=== PATIENT | male | born 1985 | race Caucasian/White ===

== ENCOUNTER 2017-09-22 12:36 | Inpatient (IN) | payer OTHER ==
[~2017-09-22] VITALS: Ht 180.3 cm; Wt 81.6 kg
[2017-09-22] MEDS: MORPHINE SULFATE 4 MG/ML DISP.SYRIN. IV/SQ PRN ×2 (12:58→13:32)
--- NOTE | 2017-09-22 13:08 | RAD ---
FOOT RIGHT 3V Clinical Indication: crush injury Comparison: None. Findings: There is acute traumatic fracture that is nondisplaced at the head of the first metatarsal. There are acute fractures of the necks of the second, third, and fourth metatarsals. The second metatarsal fracture fragment is slightly medially displaced and laterally angulated. The third metatarsal fracture fragment is slightly laterally displaced. There is additional transverse fracture line that is nondisplaced of the head of the third metatarsal. There is acute traumatic chip fracture at the lateral base of the fourth proximal phalanx. There is acute traumatic chip fracture at the medial head of the first proximal phalanx. There is acute traumatic chip fracture at the lateral base of the great toe distal phalanx. Moderate dorsal soft tissue swelling overlying the heads of the metatarsals. IMPRESSION: Multiple acute traumatic fractures of the first through fourth metatarsals and the first and fourth toes.
[2017-09-22] MEDS ORDERED: ONDANSETRON PF 4 MG/2 ML VIAL. IV ONE (13:15)
[2017-09-22] MEDS ORDERED: IV NORMAL SALINE 1000ML BAG 1,000 ML IV ONE (13:15)
[2017-09-22 13:22] LABS: BASO # 0.1 x10^3/uL (0.0-0.2); BASO % 1 % (0-3); EOS % 3 % (0-3); HEMATOCRIT 42.6 % (39.0-53.0); HEMOGLOBIN 14.8 g/dL (13.0-17.5); LYMPH # 2.3 x10^3/uL (1.0-4.8); LYMPH % 30 % (24-48); MEAN CORPUSCULAR HEMOGLOBIN 32 pg (25-35); MEAN CORPUSCULAR HGB CONC 35 g/dL (31-37); MEAN CORPUSCULAR VOLUME 93 fL (79-100); MONO % 9 % (0-9); NEUT % 58 % (31-73); PLATELET COUNT 158 x10^3/uL (140-400); RED BLOOD COUNT 4.61 x10^6/uL (4.30-5.70); RED CELL DISTRIBUTION WIDTH 12.8 % (11.5-14.5); WHITE BLOOD COUNT 7.7 x10^3/uL (4.0-11.0)
[2017-09-22 13:32] LABS: CALCIUM 8.5 mg/dL (8.5-10.1); CREATININE 0.9 mg/dL (0.7-1.3); GFR 98.4; POTASSIUM 3.1 mmol/L (3.5-5.1)
[2017-09-22 13:40] LABS: ALBUMIN 4.1 g/dL (3.4-5.0); ALBUMIN/GLOBULIN RATIO 1.4 (1.0-1.7); TOTAL BILIRUBIN 0.5 mg/dL (0.2-1.0); TOTAL PROTEIN 7.1 g/dL (6.4-8.2)
[2017-09-22] MEDS: fentaNYL PF VIAL 100 MCG/2 ML VIAL IV PRN (13:49)
[2017-09-22] MEDS ORDERED: MORPHINE SULFATE 4 MG/ML DISP.SYRIN. IV PRN (14:00)
--- NOTE | 2017-09-22 15:56 | PDOC2 ---
CONSULT Date of Consult Date of Consult DATE: 09/22/17 TIME: 15:51 Reason for Consult Reason for Consult: Right foot crush injury Referring Physician Referring Physician: Tammy Guerra Identification/Chief Complaint Chief Complaint Right foot pain Problems: Source Source: Patient History of Present Illness Reason for Visit: Patient is a 32-year-old inmate who had a crush injury to his right foot. He tells me his right foot was crushed by a large steel to that struck his foot and bounced off. He was wearing steel toed boots with a metatarsal protector as well. He is complaining of right foot pain that radiates up is inner leg. It is worse with any movement of his foot or leg. He was unable to bear weight. He has difficulty wiggling his toes Secondary to pain. He denies pain anywhere else. Current Medications Current Medications Current Medications Morphine Sulfate 4 mg PRN Q15MIN PRN IV/SQ PAIN GREATER THAN 3/10 Last administered on 09/22/17 13:32; Start 09/22/17 at 12:45; Stop 09/23/17 at 12 :44 Fentanyl Citrate (Fentanyl 2ml Vial) 50 mcg PRN Q15MIN PRN IV PAIN GREATER THAN 3/10 Last administered on 09/22/17 13:49; Start 09/22/17 at 12:45; Stop 09/23/17 at 12:44 Ondansetron HCl (Zofran) 4 mg 1X ONCE IV Last administered on 09/22/17 12:57 ; Start 09/22/17 at 13:15; Stop 09/22/17 at 13:16; Status DC Sodium Chloride 1,000 ml @ 1,000 mls/hr 1X ONCE IV Last administered on 09/22 13:32; Start 09/22/17 at 13:15; Stop 09/22/17 at 14:14; Status DC Ondansetron HCl (Zofran) 4 mg PRN Q8HRS PRN IV NAUSEA/VOMITING; Start at 14:00; Stop 09/23/17 at 13:59 Morphine Sulfate 4 mg PRN Q2HR PRN IV PAIN; Start 09/22/17 at 14:00; Stop at 13:59 Sodium Chloride 1,000 ml @ 125 mls/hr Q8H IV ; Start 09/22/17 at 13:58; Stop 09/23/17 at 13:57 Allergies Allergies: Coded Allergies: No Known Drug Allergies (Unverified , 09/22/17) ROS General: No: Chills, Night Sweats, Fatigue, Malaise, Appetite, Other Eyes: No Blurry vision, No Decreased vision, No Double vision, No Dry eyes, No Excessive tearing, No Eye Pain, No Itchy Eyes, No Loss of vision, No Photophobia , No Scotomata, No Uses contacts, No Uses glasses, No Other HEENT: No: Heacaches, Visual Changes, Hearing change, Nasal congestion, Nasal discharge, Oral lesions, Sinus pain, Sore Throat, Epistaxis, Sneezing, Snoring, Tinnitus, Vertigo, Vocal changes, Other Hematological and Lymphatic: No: Bleeding Problems, Blood Clots, Blood Transfusions, Brusing, Night Sweats, Pallor, Swollen Lymph Nodes, Other ENDOCRINE: No: Breast Changes, Galactorrhea, Hair Pattern Changes, Hot Flashes , Malaise/lethargy, Mood Swings, Palpitations, Polydipsia/polyuria, Skin Changes , Temperature Intolerance, Unexpected Weight Changes, Other Respiratory: No: Cough, Hemoptysis, Orthopnea, Pleuritic Pain, Shortness of breath, SOB with excertion, Sputum Changes, Stridor, Tachypnea, Wheezing, Other Cardiovascular: No Chest Pain, No Palpitations, No Orthopnea, No Paroxysmal Noc. Dyspnea, No Edema, No Lt Headedness, No Other Gastrointestinal: No Nausea, No Vomiting, No Abdominal Pain, No Diarrhea, No Constipation, No Melena, No Hematochezia, No Other Genitourinary: No Dysuria, No Frequency, No Incontinence, No Hematuria, No Retention, No Discharge, No Urgency, No Pain, No Flank Pain, No Other, No , No , No , No , No , No , No Musculoskeletal: Yes Joint Pain, Yes Joint Stiffness Physical Exam General: Alert, Oriented X3, mild distress HEENT: Atraumatic, PERRLA Lungs: Other (respirations are unlabored with symmetric chest rise) Heart: Regular rate, Other (unable to palpate dorsalis pedis through edema over the dorsum of right foot, 2+ left foot) Extremities: Other (he has a large amount of edema at his right foot) Skin: Other (skin is intact around the injured right foot) Neuro: Normal speech, Sensation intact Psych/Mental Status: Mental status NL, Mood NL MUSCULOSKELETAL: Other (examination of his bilateral lower extremity reveals a large amount of edema and some early ecchymosis around his right foot. No plantar ecchymosis at his midfoot. He has a gross deformity at his right great toe IP joint. He is tender throughout his right foot. No tenderness in his hindfoot leg knee or hips. No tenderness with simulated lateral compression at his hips. No pain with logrolling of either leg his hip's.) Vitals VITALS Vital Signs Date Time Temp Pulse Resp B/P (MAP) Pulse Ox O2 Delivery O2 Flow Rate FiO2 09/22/17 14:39 80 17 132/70 (90) 95 Room Air 09/22/17 12:36 98.6 98.6 Labs Labs Laboratory Tests Test 09/22/17 12:45 White Blood Count 7.7 x10^3/uL (4.0-11.0) Red Blood Count 4.61 x10^6/uL (4.30-5.70) Hemoglobin 14.8 g/dL (13.0-17.5) Hematocrit 42.6 % (39.0-53.0) Mean Corpuscular Volume 93 fL (79-100) Mean Corpuscular Hemoglobin 32 pg (25-35) Mean Corpuscular Hemoglobin Concent 35 g/dL (31-37) Red Cell Distribution Width 12.8 % (11.5-14.5) Platelet Count 158 x10^3/uL (140-400) Neutrophils (%) (Auto) 58 % (31-73) Lymphocytes (%) (Auto) 30 % (24-48) Monocytes (%) (Auto) 9 % (0-9) Eosinophils (%) (Auto) 3 % (0-3) Basophils (%) (Auto) 1 % (0-3) Neutrophils # (Auto) 4.4 x10^3uL (1.8-7.7) Lymphocytes # (Auto) 2.3 x10^3/uL (1.0-4.8) Monocytes # (Auto) 0.7 x10^3/uL (0.0-1.1) Eosinophils # (Auto) 0.2 x10^3/uL (0.0-0.7) Basophils # (Auto) 0.1 x10^3/uL (0.0-0.2) Sodium Level 144 mmol/L (136-145) Potassium Level 3.1 mmol/L (3.5-5.1) Chloride Level 105 mmol/L (98-107) Carbon Dioxide Level 29 mmol/L (21-32) Anion Gap 10 (6-14) Blood Urea Nitrogen 9 mg/dL (8-26) Creatinine 0.9 mg/dL (0.7-1.3) Estimated GFR (Cockcroft-Gault) 98.4 BUN/Creatinine Ratio 10 (6-20) Glucose Level 106 mg/dL (70-99) Calcium Level 8.5 mg/dL (8.5-10.1) Total Bilirubin 0.5 mg/dL (0.2-1.0) Aspartate Amino Transf (AST/SGOT) 20 U/L (15-37) Alanine Aminotransferase (ALT/SGPT) 24 U/L (16-63) Alkaline Phosphatase 67 U/L (46-116) Creatine Kinase 220 U/L (39-308) Total Protein 7.1 g/dL (6.4-8.2) Albumin 4.1 g/dL (3.4-5.0) Albumin/Globulin Ratio 1.4 (1.0-1.7) Laboratory Tests Test 09/22/17 12:45 White Blood Count 7.7 x10^3/uL (4.0-11.0) Red Blood Count 4.61 x10^6/uL (4.30-5.70) Hemoglobin 14.8 g/dL (13.0-17.5) Hematocrit 42.6 % (39.0-53.0) Mean Corpuscular Volume 93 fL (79-100) Mean Corpuscular Hemoglobin 32 pg (25-35) Mean Corpuscular Hemoglobin Concent 35 g/dL (31-37) Red Cell Distribution Width 12.8 % (11.5-14.5) Platelet Count 158 x10^3/uL (140-400) Neutrophils (%) (Auto) 58 % (31-73) Lymphocytes (%) (Auto) 30 % (24-48) Monocytes (%) (Auto) 9 % (0-9) Eosinophils (%) (Auto) 3 % (0-3) Basophils (%) (Auto) 1 % (0-3) Neutrophils # (Auto) 4.4 x10^3uL (1.8-7.7) Lymphocytes # (Auto) 2.3 x10^3/uL (1.0-4.8) Monocytes # (Auto) 0.7 x10^3/uL (0.0-1.1) Eosinophils # (Auto) 0.2 x10^3/uL (0.0-0.7) Basophils # (Auto) 0.1 x10^3/uL (0.0-0.2) Sodium Level 144 mmol/L (136-145) Potassium Level 3.1 mmol/L (3.5-5.1) Chloride Level 105 mmol/L (98-107) Carbon Dioxide Level 29 mmol/L (21-32) Anion Gap 10 (6-14) Blood Urea Nitrogen 9 mg/dL (8-26) Creatinine 0.9 mg/dL (0.7-1.3) Estimated GFR (Cockcroft-Gault) 98.4 BUN/Creatinine Ratio 10 (6-20) Glucose Level 106 mg/dL (70-99) Calcium Level 8.5 mg/dL (8.5-10.1) Total Bilirubin 0.5 mg/dL (0.2-1.0) Aspartate Amino Transf (AST/SGOT) 20 U/L (15-37) Alanine Aminotransferase (ALT/SGPT) 24 U/L (16-63) Alkaline Phosphatase 67 U/L (46-116) Creatine Kinase 220 U/L (39-308) Total Protein 7.1 g/dL (6.4-8.2) Albumin 4.1 g/dL (3.4-5.0) Albumin/Globulin Ratio 1.4 (1.0-1.7) Images Images X-rays were interpreted by myself. He has multiple metatarsal fractures with an IP joint dislocation at his right great toe. He has a first through fourth metatarsal shaft fractures as well as a P1 fracture of his right fourth toe Assessment/Plan Assessment/Plan Multiple closed right foot distal metatarsal fractures in acceptable overall alignment, right fourth toe proximal phalanx fracture Right great toe IP joint dislocation I did discuss risks, benefits, alternatives to closed versus open reduction and pinning of his right great toe. I did discuss with him that his metatarsals do not necessarily necessitate any treatment. We will get a CAT scan postoperatively to further evaluate his foot. He is to be admitted to the hospitalist. From my standpoint he does not need anticoagulation. He will need IV pain medicine, we will work with his pain control. He'll be nonweightbearing at his right lower extremity. LOPEZ KNAPP II, MD Sep 22, 2017 15:56
--- NOTE | 2017-09-22 16:48 | PDOC4 ---
Operative Note Operative Note Date of surgery: 09/22/2017 Surgeon: Mark Knapp Preoperative diagnosis: #1 right great toe interphalangeal joint dislocation #2 closed right first metatarsal fracture #3 closed right second metatarsal fracture #4 close right third metatarsal fracture #5 closed right fourth metatarsal fracture #6 closed right fourth toe proximal phalanx fracture Postoperative diagnoses same Procedure performed: #1 closed reduction and pinning right great toe dislocation #2 closed treatment right first metatarsal fracture #3 closed treatment right second metatarsal fracture #4 close treatment right third metatarsal fracture #5 closed treatment right fourth metatarsal fracture #6 closed treatment right fourth toe proximal phalanx fracture Complications: None Anesthesia: Gen. Components inserted: 0.62 K wire Blood loss: 2 mL Findings: Acute IP joint dislocation of right great toe Reason for procedure: Kolby is a 32-year-old inmate who had his right foot crushed by a large deal tube. He was wearing protective boots. Please see my consult note for full details. We had a discussion of the risks, benefits, and alternatives to above procedure and he elected to proceed. Description of procedure: Patient was greeted in the preoperative holding area where the correct extremity was marked and verified. He was taken back to the operative suite and his antibiotics were started as he was brought back. Once in the operating room, he was transferred gently supine to the OR table and secured to the bed with all pressure points padded. He underwent successful induction of a general anesthetic. We applied a nonsterile tourniquet to his right thigh. We proceeded prep and drape right lower extremity are usual sterile fashion and conducted our standard preoperative timeout. I then perform a reduction maneuver consisting of longitudinal traction to realign the phalanges. I brought in C-arm to confirm appropriate reduction and help guide my K wire placement. I advanced a K wire down through both phalanges confirming reduction and K wire position under triplanar fluoroscopy. I then cut the K wire and secured a plastic ball at the end. We then placed a gauze wrap around the K wire. I then placed him into an AO splint with a footplate. It was very well padded. Surgery was well tolerated. He was awakened from anesthesia and transferred gently supine to the hospital bed after the plaster had hardened. Postoperative plan is to admit him to the care of the hospital was. We will follow along. Nonweightbearing right lower extremity. We'll maintain him on antibiotic prophylaxis postoperatively as well. MARK KNAPP II, MD Sep 22, 2017 16:48
--- NOTE | 2017-09-22 17:15 | PDOC1 ---
History and Physical Date of Admission Date of Admission DATE: 09/22/17 TIME: 17:11 Identification/Chief Complaint Chief Complaint foot pain Problems: Source Source: Chart review, Patient History of Present Illness History of Present Illness Mr. Da Silva, is a 32-year-old male, currently low-security inmate, [place]. who had a crush injury to his right foot. He can move 500 lbs bundles of metal , it was unstable,and he dropped on right foot. Acute severe pain, pain 10/10, better with Fentanyl He was wearing steel toed boots with a metatarsal protector as well. pain to inner thigh, severe Past Medical History Cardiovascular: No pertinent hx Pulmonary: No pertinent hx GI: No pertinent hx Heme/Onc: No pertinent hx Hepatobiliary: No pertinent hx Psych: No pertinent hx Rheumatologic: No pertinent hx Infectious disease: No pertinent hx Past Surgical History Past Surgical History: No pertinent history Family History Family History: Family History Unknown Social History Smoke: No ALCOHOL: none Drugs: None Current Medications Current Medications Current Medications Morphine Sulfate 4 mg PRN Q15MIN PRN IV/SQ PAIN GREATER THAN 3/10 Last administered on 09/22/17 13:32; Start 09/22/17 at 12:45; Stop 09/23/17 at 12 :44 Fentanyl Citrate (Fentanyl 2ml Vial) 50 mcg PRN Q15MIN PRN IV PAIN GREATER THAN 3/10 Last administered on 09/22/17 13:49; Start 09/22/17 at 12:45; Stop 09/23/17 at 12:44 Ondansetron HCl (Zofran) 4 mg 1X ONCE IV Last administered on 09/22/17 12:57 ; Start 09/22/17 at 13:15; Stop 09/22/17 at 13:16; Status DC Sodium Chloride 1,000 ml @ 1,000 mls/hr 1X ONCE IV Last administered on 09/22 13:32; Start 09/22/17 at 13:15; Stop 09/22/17 at 14:14; Status DC Ondansetron HCl (Zofran) 4 mg PRN Q8HRS PRN IV NAUSEA/VOMITING; Start at 14:00; Stop 09/23/17 at 13:59 Morphine Sulfate 4 mg PRN Q2HR PRN IV PAIN; Start 09/22/17 at 14:00; Stop at 13:59 Sodium Chloride 1,000 ml @ 125 mls/hr Q8H IV ; Start 09/22/17 at 13:58; Stop 09/23/17 at 13:57 Cefazolin Sodium/ Dextrose 50 ml @ 100 mls/hr 1X ONCE IV ; Start 09/22/17 at 16:00; Stop 09/22/17 at 16:29; Status DC Cefazolin Sodium/ Dextrose 50 ml @ 100 mls/hr Q6H IV ; Start 09/22/17 at 16:00 ; Stop 09/23/17 at 04:29; Status UNV Allergies Allergies: Coded Allergies: No Known Drug Allergies (Unverified , 09/22/17) ROS General: No: Chills, Night Sweats, Fatigue, Malaise, Appetite, Other PSYCHOLOGICAL ROS: No: Anxiety, Behavioral Disorder, Concentration difficultie , Decreased libido, Depression, Disorientation, Hallucinations, Hostility, Irritablity, Memory difficulties, Mood Swings, Obsessive thoughts, Physical abuse, Sexual abuse, Sleep disturbances, Suicidal ideation, Other Eyes: Yes Other (dry mouth), No Blurry vision, No Decreased vision, No Double vision, No Dry eyes, No Excessive tearing, No Eye Pain, No Itchy Eyes, No Loss of vision, No Photophobia , No Scotomata, No Uses contacts, No Uses glasses HEENT: No: Heacaches, Visual Changes, Hearing change, Nasal congestion, Nasal discharge, Oral lesions, Sinus pain, Sore Throat, Epistaxis, Sneezing, Snoring, Tinnitus, Vertigo, Vocal changes, Other Hematological and Lymphatic: YES: Pallor Respiratory: No: Cough, Hemoptysis, Orthopnea, Pleuritic Pain, Shortness of breath, SOB with excertion, Sputum Changes, Stridor, Tachypnea, Wheezing, Other Cardiovascular: No Chest Pain, No Palpitations, No Orthopnea, No Paroxysmal Noc. Dyspnea, No Edema, No Lt Headedness, No Other Gastrointestinal: No Nausea, No Vomiting, No Abdominal Pain, No Diarrhea, No Constipation, No Melena, No Hematochezia, No Other Genitourinary: No Dysuria, No Frequency, No Incontinence, No Hematuria, No Retention, No Discharge, No Urgency, No Pain, No Flank Pain, No Other, No , No , No , No , No , No , No Musculoskeletal: Yes Joint Pain, Yes Joint Stiffness, Yes Pain In:, No Gait Disturbance, No Joint Swelling, No Muscle Pain, No Muscular Weakness , No Swelling In:, No Other Neurological: No Behavorial Changes, No Bowel/Bladder ControlChng, No Confusion , No Dizziness, No Gait Disturbance, No Headaches, No Impaired Coord/balance, No Memory Loss, No Numbness/Tingling, No Seizures, No Speech Problems, No Tremors, No Visual Changes, No Weakness, No Other Skin: No Dry Skin, No Eczema, No Hair Changes, No Lumps, No Mole Changes, No Mottling, No Nail Changes, No Pruritus, No Rash, No Skin Lesion Changes, No Other, No Acne Physical Exam General: Alert, Oriented X3, Cooperative, moderate distress HEENT: Mucous membr. moist/pink Lungs: Clear to auscultation, Normal air movement Heart: S1S2, no gallops, no murmurs Abdomen: Normal bowel sounds, Soft Rectal Exam: not examined Extremities: No clubbing, No cyanosis, No edema Skin: No significant lesion Neuro: Normal speech, Sensation intact, Cranial nerves 3-12 NL Psych/Mental Status: Mental status NL Vitals Vitals Vital Signs Date Time Temp Pulse Resp B/P (MAP) Pulse Ox O2 Delivery O2 Flow Rate FiO2 09/22/17 15:54 91 14 113/59 (77) 97 Room Air 09/22/17 12:36 98.6 98.6 Labs Labs Laboratory Tests Test 09/22/17 12:45 White Blood Count 7.7 x10^3/uL (4.0-11.0) Red Blood Count 4.61 x10^6/uL (4.30-5.70) Hemoglobin 14.8 g/dL (13.0-17.5) Hematocrit 42.6 % (39.0-53.0) Mean Corpuscular Volume 93 fL (79-100) Mean Corpuscular Hemoglobin 32 pg (25-35) Mean Corpuscular Hemoglobin Concent 35 g/dL (31-37) Red Cell Distribution Width 12.8 % (11.5-14.5) Platelet Count 158 x10^3/uL (140-400) Neutrophils (%) (Auto) 58 % (31-73) Lymphocytes (%) (Auto) 30 % (24-48) Monocytes (%) (Auto) 9 % (0-9) Eosinophils (%) (Auto) 3 % (0-3) Basophils (%) (Auto) 1 % (0-3) Neutrophils # (Auto) 4.4 x10^3uL (1.8-7.7) Lymphocytes # (Auto) 2.3 x10^3/uL (1.0-4.8) Monocytes # (Auto) 0.7 x10^3/uL (0.0-1.1) Eosinophils # (Auto) 0.2 x10^3/uL (0.0-0.7) Basophils # (Auto) 0.1 x10^3/uL (0.0-0.2) Sodium Level 144 mmol/L (136-145) Potassium Level 3.1 mmol/L (3.5-5.1) Chloride Level 105 mmol/L (98-107) Carbon Dioxide Level 29 mmol/L (21-32) Anion Gap 10 (6-14) Blood Urea Nitrogen 9 mg/dL (8-26) Creatinine 0.9 mg/dL (0.7-1.3) Estimated GFR (Cockcroft-Gault) 98.4 BUN/Creatinine Ratio 10 (6-20) Glucose Level 106 mg/dL (70-99) Calcium Level 8.5 mg/dL (8.5-10.1) Total Bilirubin 0.5 mg/dL (0.2-1.0) Aspartate Amino Transf (AST/SGOT) 20 U/L (15-37) Alanine Aminotransferase (ALT/SGPT) 24 U/L (16-63) Alkaline Phosphatase 67 U/L (46-116) Creatine Kinase 220 U/L (39-308) Total Protein 7.1 g/dL (6.4-8.2) Albumin 4.1 g/dL (3.4-5.0) Albumin/Globulin Ratio 1.4 (1.0-1.7) Laboratory Tests Test 09/22/17 12:45 White Blood Count 7.7 x10^3/uL (4.0-11.0) Red Blood Count 4.61 x10^6/uL (4.30-5.70) Hemoglobin 14.8 g/dL (13.0-17.5) Hematocrit 42.6 % (39.0-53.0) Mean Corpuscular Volume 93 fL (79-100) Mean Corpuscular Hemoglobin 32 pg (25-35) Mean Corpuscular Hemoglobin Concent 35 g/dL (31-37) Red Cell Distribution Width 12.8 % (11.5-14.5) Platelet Count 158 x10^3/uL (140-400) Neutrophils (%) (Auto) 58 % (31-73) Lymphocytes (%) (Auto) 30 % (24-48) Monocytes (%) (Auto) 9 % (0-9) Eosinophils (%) (Auto) 3 % (0-3) Basophils (%) (Auto) 1 % (0-3) Neutrophils # (Auto) 4.4 x10^3uL (1.8-7.7) Lymphocytes # (Auto) 2.3 x10^3/uL (1.0-4.8) Monocytes # (Auto) 0.7 x10^3/uL (0.0-1.1) Eosinophils # (Auto) 0.2 x10^3/uL (0.0-0.7) Basophils # (Auto) 0.1 x10^3/uL (0.0-0.2) Sodium Level 144 mmol/L (136-145) Potassium Level 3.1 mmol/L (3.5-5.1) Chloride Level 105 mmol/L (98-107) Carbon Dioxide Level 29 mmol/L (21-32) Anion Gap 10 (6-14) Blood Urea Nitrogen 9 mg/dL (8-26) Creatinine 0.9 mg/dL (0.7-1.3) Estimated GFR (Cockcroft-Gault) 98.4 BUN/Creatinine Ratio 10 (6-20) Glucose Level 106 mg/dL (70-99) Calcium Level 8.5 mg/dL (8.5-10.1) Total Bilirubin 0.5 mg/dL (0.2-1.0) Aspartate Amino Transf (AST/SGOT) 20 U/L (15-37) Alanine Aminotransferase (ALT/SGPT) 24 U/L (16-63) Alkaline Phosphatase 67 U/L (46-116) Creatine Kinase 220 U/L (39-308) Total Protein 7.1 g/dL (6.4-8.2) Albumin 4.1 g/dL (3.4-5.0) Albumin/Globulin Ratio 1.4 (1.0-1.7) VTE Prophylaxis Ordered VTE Prophylaxis Devices: Yes VTE Pharmacological Prophylaxi: No Assessment/Plan Assessment/Plan trauma activation right foot crush injury hypokalemia incarcerated pain control, constipation meds IV fluid, PT and OT HUNG GREWAL MD Sep 22, 2017 17:15
[2017-09-22] MEDS ORDERED: MAGNESIUM HYDROXIDE 2,400 MG/30 ML ORAL.SUSP. PO PRN (17:30)
[2017-09-22] MEDS: IV RINGERS,LACTATED 1000ML 1,000 ML IV SCH ×2 (17:47→19:40)
--- NOTE | 2017-09-22 17:56 | PHYS DOC ---
Past Medical History Past Medical History: No Pertinent History Past Surgical History: No Surgical History Alcohol Use: None Drug Use: None Adult General Chief Complaint Chief Complaint: TRAUMA ALERT HPI HPI Patient is a 32 year old male who presents with crush injury to right foot. The patient states just prior to arrival a 480 lb metal pipe fell onto his foot. He was wearing work boots at the time. Denies other injuries. He complains of severe foot pain. Previously healthy. He is incarcerated & accompanied by guards. Review of Systems Review of Systems Constitutional: Denies fever or chills Eyes: Denies change in visual acuity HENT: Denies nasal congestion or sore throat Respiratory: Denies cough or shortness of breath Cardiovascular: Denies chest pain or edema GI: Denies abdominal pain, nausea, vomiting Musculoskeletal: Denies back pain, reports foot pain Integument: Denies rash or skin lesions Neurologic: Denies headache, focal weakness or sensory changes All other systems were reviewed and found to be within normal limits, except as documented in this note. Current Medications Current Medications Current Medications Medications (Trade) Dose Ordered Sig/Camelia Start Time Stop Time Status Last Admin Dose Admin Fentanyl Citrate (Fentanyl 2ml Vial) 50 mcg PRN Q15MIN PRN 09/22/17 12:45 09/23/17 12:44 09/22/17 13:49 50 MCG Morphine Sulfate 4 mg PRN Q15MIN PRN 09/22/17 12:45 09/23/17 12:44 09/22/17 13:32 4 MG Ondansetron HCl (Zofran) 4 mg 1X ONCE 09/22/17 13:15 09/22/17 13:16 DC 09/22/17 12:57 4 MG Sodium Chloride 1,000 ml @ 1,000 mls/hr 1X ONCE 09/22/17 13:15 09/22/17 14:14 DC 09/22/17 13:32 1,000 MLS/HR Allergies Allergies Allergies Coded Allergies Type Severity Reaction Last Updated Verified No Known Drug Allergies 09/22/17 No Physical Exam Physical Exam Constitutional: Well developed, well nourished, acute distress is present, appears to be in pain, non-toxic appearance. HENT: Normocephalic, atraumatic, bilateral external ears normal, oropharynx moist, nose normal. Eyes:conjunctiva normal, no discharge. Neck: supple, no stridor. Cardiovascular: RRR, no murmurs, no edema. Lungs & Thorax: LCTAB, no wheezing, no respiratory distress. Abdomen: soft, nontender, nondistended. Skin: Warm, dry, no erythema, no rash. Back: No tenderness. Extremities: right foot diffuse swelling over the dorsum, tenderness over essentially the entire dorsum of the foot, no laceration or open fracture, great toe appears to be deviated laterally, no ankle tenderness or deformity, dp /pt 2+, sensation intact to toes, cap refill < 2 sec. difficult to assess ankle ROM or ability to move toes due to severe pain. Neurologic: Alert and oriented X 3, no focal deficits noted. Psychologic: Affect normal, judgement normal, mood normal. Current Patient Data Vital Signs Vital Signs Date Time Temp Pulse Resp B/P (MAP) Pulse Ox O2 Delivery O2 Flow Rate FiO2 09/22/17 13:32 100 Room Air 09/22/17 13:24 73 16 127/69 (88) 09/22/17 12:36 98.6 98.6 Lab Values Laboratory Tests Test 09/22/17 12:45 White Blood Count 7.7 x10^3/uL (4.0-11.0) Red Blood Count 4.61 x10^6/uL (4.30-5.70) Hemoglobin 14.8 g/dL (13.0-17.5) Hematocrit 42.6 % (39.0-53.0) Mean Corpuscular Volume 93 fL (79-100) Mean Corpuscular Hemoglobin 32 pg (25-35) Mean Corpuscular Hemoglobin Concent 35 g/dL (31-37) Red Cell Distribution Width 12.8 % (11.5-14.5) Platelet Count 158 x10^3/uL (140-400) Neutrophils (%) (Auto) 58 % (31-73) Lymphocytes (%) (Auto) 30 % (24-48) Monocytes (%) (Auto) 9 % (0-9) Eosinophils (%) (Auto) 3 % (0-3) Basophils (%) (Auto) 1 % (0-3) Neutrophils # (Auto) 4.4 x10^3uL (1.8-7.7) Lymphocytes # (Auto) 2.3 x10^3/uL (1.0-4.8) Monocytes # (Auto) 0.7 x10^3/uL (0.0-1.1) Eosinophils # (Auto) 0.2 x10^3/uL (0.0-0.7) Basophils # (Auto) 0.1 x10^3/uL (0.0-0.2) Sodium Level 144 mmol/L (136-145) Potassium Level 3.1 mmol/L (3.5-5.1) L Chloride Level 105 mmol/L (98-107) Carbon Dioxide Level 29 mmol/L (21-32) Anion Gap 10 (6-14) Blood Urea Nitrogen 9 mg/dL (8-26) Creatinine 0.9 mg/dL (0.7-1.3) Estimated GFR (Cockcroft-Gault) 98.4 BUN/Creatinine Ratio 10 (6-20) Glucose Level 106 mg/dL (70-99) H Calcium Level 8.5 mg/dL (8.5-10.1) Total Bilirubin 0.5 mg/dL (0.2-1.0) Aspartate Amino Transferase (AST) 20 U/L (15-37) Alanine Aminotransferase (ALT) 24 U/L (16-63) Alkaline Phosphatase 67 U/L (46-116) Creatine Kinase 220 U/L (39-308) Total Protein 7.1 g/dL (6.4-8.2) Albumin 4.1 g/dL (3.4-5.0) Albumin/Globulin Ratio 1.4 (1.0-1.7) Laboratory Tests 09/22/17 12:45 Laboratory Tests 09/22/17 12:45 EKG EKG [] Radiology/Procedures Radiology/Procedures PROCEDURE: FOOT RIGHT 3V FOOT RIGHT 3V Clinical Indication: crush injury Comparison: None. Findings: There is acute traumatic fracture that is nondisplaced at the head of the first metatarsal. There are acute fractures of the necks of the second, third, and fourth metatarsals. The second metatarsal fracture fragment is slightly medially displaced and laterally angulated. The third metatarsal fracture fragment is slightly laterally displaced. There is additional transverse fracture line that is nondisplaced of the head of the third metatarsal. There is acute traumatic chip fracture at the lateral base of the fourth proximal phalanx. There is acute traumatic chip fracture at the medial head of the first proximal phalanx. There is acute traumatic chip fracture at the lateral base of the great toe distal phalanx. Moderate dorsal soft tissue swelling overlying the heads of the metatarsals. IMPRESSION: Multiple acute traumatic fractures of the first through fourth metatarsals and the first and fourth toes. DICTATED and SIGNED BY: CHRIS GARAY MD DATE: 09/22/17 1259 [] Course & Med Decision Making Course & Med Decision Making Pertinent Labs and Imaging studies reviewed. (See chart for details) The patient presents with crush injury to the foot. This was a trauma alert. Pain medication & IV fluids were administered. Obtained XR which shows metatarsal fractures as well as dislocation of the great toe at the IP joint. Discussed with Dr. Jain commercial lending relationship manager for orthopedics, recommends splinting & will take to OR for pinning. psychiatric technician applied well padded short leg splint, placement confirmed by me, neurovascular status intact after splint placement. Discussed with Dr. Morris who agrees to admit to inpatient status. Trauma consult to Dr. Ramirez. The patient is admitted in stable condition. [] Dragon Disclaimer Dragon Disclaimer This electronic medical record was generated, in whole or in part, using a voice recognition dictation system. Departure Departure Impression: Primary Impression: Crush injury of foot Additional Impressions: Multiple closed fractures of metatarsal bone Toe joint dislocation Disposition: 09 ADMITTED INPATIENT Admitting Physician: Camila Morris Condition: STABLE Problem Qualifiers Primary Impression: Crush injury of foot Encounter type: initial encounter Laterality: right Qualified Codes: S97.81XA - Crushing injury of right foot, initial encounter Additional Impressions: Multiple closed fractures of metatarsal bone Encounter type: initial encounter Laterality: right Qualified Codes: S92.301A - Fracture of unspecified metatarsal bone(s), right foot, initial encounter for closed fracture Toe joint dislocation Encounter type: initial encounter Laterality: right Qualified Codes: S93.104A - Unspecified dislocation of right toe(s), initial encounter FLORENCIO MAYER MD Sep 22, 2017 17:56
[2017-09-22] MEDS ORDERED: LIDOCAINE 1% PF 30 ML VIAL. ONE (17:59)
[2017-09-22] MEDS ORDERED: BUPIVACAINE MPF 0.5% 30 ML VIAL. ONE (17:59)
[2017-09-22] MEDS ORDERED: POLYETHYLENE GLYCOL 3350 17 GM PACKET. PO ONE (18:00)
[2017-09-22] MEDS ORDERED: POTASSIUM CHLORIDE 20 MEQ TABLET.ER. PO ONE (18:00)
[2017-09-22] MEDS ORDERED: PROPOFOL 20 ML IV ONE (18:05)
[2017-09-22] MEDS ORDERED: LIDOCAINE 2% PF Vial for OR 5 ML VIAL. ONE (18:05)
[2017-09-22] MEDS ORDERED: SEVOFLURANE 16 TO 30 MINUTES. IH ONE (18:05)
[2017-09-22] MEDS ORDERED: fentaNYL PF VIAL 100 MCG/2 ML VIAL ONE (18:06)
[2017-09-22] MEDS ORDERED: DEXAMETHASONE SOD PHOS 20 MG/5 ML VIAL. ONE (18:26)
[2017-09-22] MEDS ORDERED: ONDANSETRON PF 4 MG/2 ML VIAL. ONE (18:26)
[2017-09-22] MEDS ORDERED: MORPHINE SULFATE 10 MG/ML VIAL. ONE (18:31)
[2017-09-22] MEDS ORDERED: ePHEDrine PF IN SALINE 50 MG/5 ML DISP.SYRIN IV ONE (18:49)
[2017-09-22] MEDS: ONDANSETRON PF 4 MG/2 ML VIAL. IV PRN (19:46)
[2017-09-22 20:00] VITALS: BP 146/86
[2017-09-22 20:15] VITALS: BP 134/71
[2017-09-22] MEDS: IV NORMAL SALINE 1000ML BAG 1,000 ML IV SCH ×2 (20:42→21:58)
[2017-09-22 21:00] VITALS: BP 132/69
[2017-09-22] MEDS ORDERED: ZOLPIDEM 5 MG TABLET. PO PRN (21:15)
[2017-09-22 22:00] VITALS: BP 150/86
[2017-09-22 23:00] VITALS: BP 134/77
[2017-09-23] MEDS: ONDANSETRON PF 4 MG/2 ML VIAL. IV PRN (00:26)
[2017-09-23] MEDS: fentaNYL PF VIAL 100 MCG/2 ML VIAL IV PRN (00:27)
[2017-09-23] MEDS: oxyCODONE/APAP 7.5/325 1 TAB TABLET PO PRN ×5 (01:48→20:11)
[2017-09-23 03:00] VITALS: BP 117/62
[2017-09-23 05:30] LABS: BASO % 0 % (0-3); EOS % 0 % (0-3); HEMATOCRIT 38.6 % (39.0-53.0); HEMOGLOBIN 13.6 g/dL (13.0-17.5); LYMPH # 0.8 x10^3/uL (1.0-4.8); LYMPH % 8 % (24-48); MEAN CORPUSCULAR HEMOGLOBIN 32 pg (25-35); MEAN CORPUSCULAR HGB CONC 35 g/dL (31-37); MEAN CORPUSCULAR VOLUME 91 fL (79-100); MONO % 5 % (0-9); NEUT % 87 % (31-73); PLATELET COUNT 144 x10^3/uL (140-400); RED BLOOD COUNT 4.23 x10^6/uL (4.30-5.70); RED CELL DISTRIBUTION WIDTH 12.6 % (11.5-14.5); WHITE BLOOD COUNT 9.5 x10^3/uL (4.0-11.0)
[2017-09-23] MEDS: IV NORMAL SALINE 1000ML BAG 1,000 ML IV SCH (05:40)
[2017-09-23 06:02] LABS: CALCIUM 8.2 mg/dL (8.5-10.1); CREATININE 0.9 mg/dL (0.7-1.3); GFR 98.4; POTASSIUM 4.1 mmol/L (3.5-5.1)
[2017-09-23 07:00] VITALS: BP 128/60
[2017-09-23 08:09] LABS: PLT ESTIMATE ADEQUATE (ADEQUATE)
--- NOTE | 2017-09-23 08:17 | PDOC ---
ORTHO PROGRESS NOTES Subjective Artie tells me that his pain is doing okay, little more sore this morning but he did not take any pain pills for quite a while. It feels better than it did yesterday. He is feeling little nauseous this morning. Vitals Vital Signs Date Time Temp Pulse Resp B/P (MAP) Pulse Ox O2 Delivery O2 Flow Rate FiO2 09/23/17 03:00 98.6 98 18 117/62 (80) 97 Room Air 98.6 09/22/17 19:16 10 Labs Laboratory Tests Test 09/22/17 12:45 09/23/17 04:45 White Blood Count 7.7 x10^3/uL (4.0-11.0) 9.5 x10^3/uL (4.0-11.0) Red Blood Count 4.61 x10^6/uL (4.30-5.70) 4.23 x10^6/uL (4.30-5.70) Hemoglobin 14.8 g/dL (13.0-17.5) 13.6 g/dL (13.0-17.5) Hematocrit 42.6 % (39.0-53.0) 38.6 % (39.0-53.0) Mean Corpuscular Volume 93 fL (79-100) 91 fL (79-100) Mean Corpuscular Hemoglobin 32 pg (25-35) 32 pg (25-35) Mean Corpuscular Hemoglobin Concent 35 g/dL (31-37) 35 g/dL (31-37) Red Cell Distribution Width 12.8 % (11.5-14.5) 12.6 % (11.5-14.5) Platelet Count 158 x10^3/uL (140-400) 144 x10^3/uL (140-400) Neutrophils (%) (Auto) 58 % (31-73) 87 % (31-73) Lymphocytes (%) (Auto) 30 % (24-48) 8 % (24-48) Monocytes (%) (Auto) 9 % (0-9) 5 % (0-9) Eosinophils (%) (Auto) 3 % (0-3) 0 % (0-3) Basophils (%) (Auto) 1 % (0-3) 0 % (0-3) Neutrophils # (Auto) 4.4 x10^3uL (1.8-7.7) 8.3 x10^3uL (1.8-7.7) Lymphocytes # (Auto) 2.3 x10^3/uL (1.0-4.8) 0.8 x10^3/uL (1.0-4.8) Monocytes # (Auto) 0.7 x10^3/uL (0.0-1.1) 0.4 x10^3/uL (0.0-1.1) Eosinophils # (Auto) 0.2 x10^3/uL (0.0-0.7) 0.0 x10^3/uL (0.0-0.7) Basophils # (Auto) 0.1 x10^3/uL (0.0-0.2) 0.0 x10^3/uL (0.0-0.2) Sodium Level 144 mmol/L (136-145) 140 mmol/L (136-145) Potassium Level 3.1 mmol/L (3.5-5.1) 4.1 mmol/L (3.5-5.1) Chloride Level 105 mmol/L (98-107) 104 mmol/L (98-107) Carbon Dioxide Level 29 mmol/L (21-32) 25 mmol/L (21-32) Anion Gap 10 (6-14) 11 (6-14) Blood Urea Nitrogen 9 mg/dL (8-26) 8 mg/dL (8-26) Creatinine 0.9 mg/dL (0.7-1.3) 0.9 mg/dL (0.7-1.3) Estimated GFR (Cockcroft-Gault) 98.4 98.4 BUN/Creatinine Ratio 10 (6-20) Glucose Level 106 mg/dL (70-99) 132 mg/dL (70-99) Calcium Level 8.5 mg/dL (8.5-10.1) 8.2 mg/dL (8.5-10.1) Total Bilirubin 0.5 mg/dL (0.2-1.0) Aspartate Amino Transf (AST/SGOT) 20 U/L (15-37) Alanine Aminotransferase (ALT/SGPT) 24 U/L (16-63) Alkaline Phosphatase 67 U/L (46-116) Creatine Kinase 220 U/L (39-308) Total Protein 7.1 g/dL (6.4-8.2) Albumin 4.1 g/dL (3.4-5.0) Albumin/Globulin Ratio 1.4 (1.0-1.7) Segmented Neutrophils % 91 % (35-66) Lymphocytes % 8 % (24-48) Monocytes % 1 % (0-10) Platelet Estimate Adequate (ADEQUATE) Laboratory Tests Test 09/22/17 12:45 09/23/17 04:45 White Blood Count 7.7 x10^3/uL (4.0-11.0) 9.5 x10^3/uL (4.0-11.0) Red Blood Count 4.61 x10^6/uL (4.30-5.70) 4.23 x10^6/uL (4.30-5.70) Hemoglobin 14.8 g/dL (13.0-17.5) 13.6 g/dL (13.0-17.5) Hematocrit 42.6 % (39.0-53.0) 38.6 % (39.0-53.0) Mean Corpuscular Volume 93 fL (79-100) 91 fL (79-100) Mean Corpuscular Hemoglobin 32 pg (25-35) 32 pg (25-35) Mean Corpuscular Hemoglobin Concent 35 g/dL (31-37) 35 g/dL (31-37) Red Cell Distribution Width 12.8 % (11.5-14.5) 12.6 % (11.5-14.5) Platelet Count 158 x10^3/uL (140-400) 144 x10^3/uL (140-400) Neutrophils (%) (Auto) 58 % (31-73) 87 % (31-73) Lymphocytes (%) (Auto) 30 % (24-48) 8 % (24-48) Monocytes (%) (Auto) 9 % (0-9) 5 % (0-9) Eosinophils (%) (Auto) 3 % (0-3) 0 % (0-3) Basophils (%) (Auto) 1 % (0-3) 0 % (0-3) Neutrophils # (Auto) 4.4 x10^3uL (1.8-7.7) 8.3 x10^3uL (1.8-7.7) Lymphocytes # (Auto) 2.3 x10^3/uL (1.0-4.8) 0.8 x10^3/uL (1.0-4.8) Monocytes # (Auto) 0.7 x10^3/uL (0.0-1.1) 0.4 x10^3/uL (0.0-1.1) Eosinophils # (Auto) 0.2 x10^3/uL (0.0-0.7) 0.0 x10^3/uL (0.0-0.7) Basophils # (Auto) 0.1 x10^3/uL (0.0-0.2) 0.0 x10^3/uL (0.0-0.2) Sodium Level 144 mmol/L (136-145) 140 mmol/L (136-145) Potassium Level 3.1 mmol/L (3.5-5.1) 4.1 mmol/L (3.5-5.1) Chloride Level 105 mmol/L (98-107) 104 mmol/L (98-107) Carbon Dioxide Level 29 mmol/L (21-32) 25 mmol/L (21-32) Anion Gap 10 (6-14) 11 (6-14) Blood Urea Nitrogen 9 mg/dL (8-26) 8 mg/dL (8-26) Creatinine 0.9 mg/dL (0.7-1.3) 0.9 mg/dL (0.7-1.3) Estimated GFR (Cockcroft-Gault) 98.4 98.4 BUN/Creatinine Ratio 10 (6-20) Glucose Level 106 mg/dL (70-99) 132 mg/dL (70-99) Calcium Level 8.5 mg/dL (8.5-10.1) 8.2 mg/dL (8.5-10.1) Total Bilirubin 0.5 mg/dL (0.2-1.0) Aspartate Amino Transf (AST/SGOT) 20 U/L (15-37) Alanine Aminotransferase (ALT/SGPT) 24 U/L (16-63) Alkaline Phosphatase 67 U/L (46-116) Creatine Kinase 220 U/L (39-308) Total Protein 7.1 g/dL (6.4-8.2) Albumin 4.1 g/dL (3.4-5.0) Albumin/Globulin Ratio 1.4 (1.0-1.7) Segmented Neutrophils % 91 % (35-66) Lymphocytes % 8 % (24-48) Monocytes % 1 % (0-10) Platelet Estimate Adequate (ADEQUATE) Notes He is awake and alert and lying in bed. Full pain-free range of motion of left lower extremity, bilateral upper extremities. No tenderness. Examination of his right lower extremity reveals the splint is in place. Minimal dried bloody drainage from the operative site. Toes are warm Assessment and Plan He will be nonweightbearing for 6 weeks. We will leave him in the splint until I see him in follow-up. Once his pain is controlled, he can be discharged LOPEZ KNAPP II, MD Sep 23, 2017 08:17
[2017-09-23] MEDS: IV RINGERS,LACTATED 1000ML 1,000 ML IV SCH (08:31)
[2017-09-23] MEDS: POTASSIUM CHLORIDE 20 MEQ TABLET.ER. PO SCH (08:51)
[2017-09-23] MEDS: POLYETHYLENE GLYCOL 3350 17 GM PACKET. PO SCH (08:52)
[2017-09-23] MEDS: DOCUSATE SODIUM 100 MG CAPSULE. PO SCH (08:52)
[2017-09-23 11:40] VITALS: BP 114/65
--- NOTE | 2017-09-23 12:32 | PDOC ---
PROGRESS NOTES Chief Complaint Chief Complaint right foot crush injury hypokalemia nausea without vomiting History of Present Illness History of Present Illness incarcerated, plan DC to [facility] soon pain control, PT and OT as able, pain when not supine, Vitals Vitals Vital Signs Date Time Temp Pulse Resp B/P (MAP) Pulse Ox O2 Delivery O2 Flow Rate FiO2 09/23/17 11:40 97.9 86 18 114/65 (81) 96 Room Air 97.9 09/22/17 19:16 10 Physical Exam General: Alert, Oriented X3, Cooperative, moderate distress Heart: Regular rate, Other (unable to palpate dorsalis pedis through edema over the dorsum of right foot, 2+ left foot) Lungs: Clear Abdomen: Normal bowel sounds, Soft Extremities: No clubbing, No cyanosis, No edema Skin: No significant lesion Labs LABS Laboratory Tests Test 09/22/17 12:45 09/23/17 04:45 White Blood Count 7.7 x10^3/uL (4.0-11.0) 9.5 x10^3/uL (4.0-11.0) Red Blood Count 4.61 x10^6/uL (4.30-5.70) 4.23 x10^6/uL (4.30-5.70) Hemoglobin 14.8 g/dL (13.0-17.5) 13.6 g/dL (13.0-17.5) Hematocrit 42.6 % (39.0-53.0) 38.6 % (39.0-53.0) Mean Corpuscular Volume 93 fL (79-100) 91 fL (79-100) Mean Corpuscular Hemoglobin 32 pg (25-35) 32 pg (25-35) Mean Corpuscular Hemoglobin Concent 35 g/dL (31-37) 35 g/dL (31-37) Red Cell Distribution Width 12.8 % (11.5-14.5) 12.6 % (11.5-14.5) Platelet Count 158 x10^3/uL (140-400) 144 x10^3/uL (140-400) Neutrophils (%) (Auto) 58 % (31-73) 87 % (31-73) Lymphocytes (%) (Auto) 30 % (24-48) 8 % (24-48) Monocytes (%) (Auto) 9 % (0-9) 5 % (0-9) Eosinophils (%) (Auto) 3 % (0-3) 0 % (0-3) Basophils (%) (Auto) 1 % (0-3) 0 % (0-3) Neutrophils # (Auto) 4.4 x10^3uL (1.8-7.7) 8.3 x10^3uL (1.8-7.7) Lymphocytes # (Auto) 2.3 x10^3/uL (1.0-4.8) 0.8 x10^3/uL (1.0-4.8) Monocytes # (Auto) 0.7 x10^3/uL (0.0-1.1) 0.4 x10^3/uL (0.0-1.1) Eosinophils # (Auto) 0.2 x10^3/uL (0.0-0.7) 0.0 x10^3/uL (0.0-0.7) Basophils # (Auto) 0.1 x10^3/uL (0.0-0.2) 0.0 x10^3/uL (0.0-0.2) Sodium Level 144 mmol/L (136-145) 140 mmol/L (136-145) Potassium Level 3.1 mmol/L (3.5-5.1) 4.1 mmol/L (3.5-5.1) Chloride Level 105 mmol/L (98-107) 104 mmol/L (98-107) Carbon Dioxide Level 29 mmol/L (21-32) 25 mmol/L (21-32) Anion Gap 10 (6-14) 11 (6-14) Blood Urea Nitrogen 9 mg/dL (8-26) 8 mg/dL (8-26) Creatinine 0.9 mg/dL (0.7-1.3) 0.9 mg/dL (0.7-1.3) Estimated GFR (Cockcroft-Gault) 98.4 98.4 BUN/Creatinine Ratio 10 (6-20) Glucose Level 106 mg/dL (70-99) 132 mg/dL (70-99) Calcium Level 8.5 mg/dL (8.5-10.1) 8.2 mg/dL (8.5-10.1) Total Bilirubin 0.5 mg/dL (0.2-1.0) Aspartate Amino Transf (AST/SGOT) 20 U/L (15-37) Alanine Aminotransferase (ALT/SGPT) 24 U/L (16-63) Alkaline Phosphatase 67 U/L (46-116) Creatine Kinase 220 U/L (39-308) Total Protein 7.1 g/dL (6.4-8.2) Albumin 4.1 g/dL (3.4-5.0) Albumin/Globulin Ratio 1.4 (1.0-1.7) Segmented Neutrophils % 91 % (35-66) Lymphocytes % 8 % (24-48) Monocytes % 1 % (0-10) Platelet Estimate Adequate (ADEQUATE) Review of Systems Review of Systems pain, nausea little PO intake today Assessment and Plan Assessmemt and Plan Problems Medical Problems: (1) Crush injury of foot Status: Acute (2) Multiple closed fractures of metatarsal bone Status: Acute (3) Toe joint dislocation Status: Acute Problems: Comment Review of Relevant I have reviewed the following items briseyda (where applicable) has been applied. Labs Laboratory Tests Test 09/22/17 12:45 09/23/17 04:45 White Blood Count 7.7 x10^3/uL (4.0-11.0) 9.5 x10^3/uL (4.0-11.0) Red Blood Count 4.61 x10^6/uL (4.30-5.70) 4.23 x10^6/uL (4.30-5.70) Hemoglobin 14.8 g/dL (13.0-17.5) 13.6 g/dL (13.0-17.5) Hematocrit 42.6 % (39.0-53.0) 38.6 % (39.0-53.0) Mean Corpuscular Volume 93 fL (79-100) 91 fL (79-100) Mean Corpuscular Hemoglobin 32 pg (25-35) 32 pg (25-35) Mean Corpuscular Hemoglobin Concent 35 g/dL (31-37) 35 g/dL (31-37) Red Cell Distribution Width 12.8 % (11.5-14.5) 12.6 % (11.5-14.5) Platelet Count 158 x10^3/uL (140-400) 144 x10^3/uL (140-400) Neutrophils (%) (Auto) 58 % (31-73) 87 % (31-73) Lymphocytes (%) (Auto) 30 % (24-48) 8 % (24-48) Monocytes (%) (Auto) 9 % (0-9) 5 % (0-9) Eosinophils (%) (Auto) 3 % (0-3) 0 % (0-3) Basophils (%) (Auto) 1 % (0-3) 0 % (0-3) Neutrophils # (Auto) 4.4 x10^3uL (1.8-7.7) 8.3 x10^3uL (1.8-7.7) Lymphocytes # (Auto) 2.3 x10^3/uL (1.0-4.8) 0.8 x10^3/uL (1.0-4.8) Monocytes # (Auto) 0.7 x10^3/uL (0.0-1.1) 0.4 x10^3/uL (0.0-1.1) Eosinophils # (Auto) 0.2 x10^3/uL (0.0-0.7) 0.0 x10^3/uL (0.0-0.7) Basophils # (Auto) 0.1 x10^3/uL (0.0-0.2) 0.0 x10^3/uL (0.0-0.2) Sodium Level 144 mmol/L (136-145) 140 mmol/L (136-145) Potassium Level 3.1 mmol/L (3.5-5.1) 4.1 mmol/L (3.5-5.1) Chloride Level 105 mmol/L (98-107) 104 mmol/L (98-107) Carbon Dioxide Level 29 mmol/L (21-32) 25 mmol/L (21-32) Anion Gap 10 (6-14) 11 (6-14) Blood Urea Nitrogen 9 mg/dL (8-26) 8 mg/dL (8-26) Creatinine 0.9 mg/dL (0.7-1.3) 0.9 mg/dL (0.7-1.3) Estimated GFR (Cockcroft-Gault) 98.4 98.4 BUN/Creatinine Ratio 10 (6-20) Glucose Level 106 mg/dL (70-99) 132 mg/dL (70-99) Calcium Level 8.5 mg/dL (8.5-10.1) 8.2 mg/dL (8.5-10.1) Total Bilirubin 0.5 mg/dL (0.2-1.0) Aspartate Amino Transf (AST/SGOT) 20 U/L (15-37) Alanine Aminotransferase (ALT/SGPT) 24 U/L (16-63) Alkaline Phosphatase 67 U/L (46-116) Creatine Kinase 220 U/L (39-308) Total Protein 7.1 g/dL (6.4-8.2) Albumin 4.1 g/dL (3.4-5.0) Albumin/Globulin Ratio 1.4 (1.0-1.7) Segmented Neutrophils % 91 % (35-66) Lymphocytes % 8 % (24-48) Monocytes % 1 % (0-10) Platelet Estimate Adequate (ADEQUATE) Laboratory Tests Test 09/22/17 12:45 09/23/17 04:45 White Blood Count 7.7 x10^3/uL (4.0-11.0) 9.5 x10^3/uL (4.0-11.0) Red Blood Count 4.61 x10^6/uL (4.30-5.70) 4.23 x10^6/uL (4.30-5.70) Hemoglobin 14.8 g/dL (13.0-17.5) 13.6 g/dL (13.0-17.5) Hematocrit 42.6 % (39.0-53.0) 38.6 % (39.0-53.0) Mean Corpuscular Volume 93 fL (79-100) 91 fL (79-100) Mean Corpuscular Hemoglobin 32 pg (25-35) 32 pg (25-35) Mean Corpuscular Hemoglobin Concent 35 g/dL (31-37) 35 g/dL (31-37) Red Cell Distribution Width 12.8 % (11.5-14.5) 12.6 % (11.5-14.5) Platelet Count 158 x10^3/uL (140-400) 144 x10^3/uL (140-400) Neutrophils (%) (Auto) 58 % (31-73) 87 % (31-73) Lymphocytes (%) (Auto) 30 % (24-48) 8 % (24-48) Monocytes (%) (Auto) 9 % (0-9) 5 % (0-9) Eosinophils (%) (Auto) 3 % (0-3) 0 % (0-3) Basophils (%) (Auto) 1 % (0-3) 0 % (0-3) Neutrophils # (Auto) 4.4 x10^3uL (1.8-7.7) 8.3 x10^3uL (1.8-7.7) Lymphocytes # (Auto) 2.3 x10^3/uL (1.0-4.8) 0.8 x10^3/uL (1.0-4.8) Monocytes # (Auto) 0.7 x10^3/uL (0.0-1.1) 0.4 x10^3/uL (0.0-1.1) Eosinophils # (Auto) 0.2 x10^3/uL (0.0-0.7) 0.0 x10^3/uL (0.0-0.7) Basophils # (Auto) 0.1 x10^3/uL (0.0-0.2) 0.0 x10^3/uL (0.0-0.2) Sodium Level 144 mmol/L (136-145) 140 mmol/L (136-145) Potassium Level 3.1 mmol/L (3.5-5.1) 4.1 mmol/L (3.5-5.1) Chloride Level 105 mmol/L (98-107) 104 mmol/L (98-107) Carbon Dioxide Level 29 mmol/L (21-32) 25 mmol/L (21-32) Anion Gap 10 (6-14) 11 (6-14) Blood Urea Nitrogen 9 mg/dL (8-26) 8 mg/dL (8-26) Creatinine 0.9 mg/dL (0.7-1.3) 0.9 mg/dL (0.7-1.3) Estimated GFR (Cockcroft-Gault) 98.4 98.4 BUN/Creatinine Ratio 10 (6-20) Glucose Level 106 mg/dL (70-99) 132 mg/dL (70-99) Calcium Level 8.5 mg/dL (8.5-10.1) 8.2 mg/dL (8.5-10.1) Total Bilirubin 0.5 mg/dL (0.2-1.0) Aspartate Amino Transf (AST/SGOT) 20 U/L (15-37) Alanine Aminotransferase (ALT/SGPT) 24 U/L (16-63) Alkaline Phosphatase 67 U/L (46-116) Creatine Kinase 220 U/L (39-308) Total Protein 7.1 g/dL (6.4-8.2) Albumin 4.1 g/dL (3.4-5.0) Albumin/Globulin Ratio 1.4 (1.0-1.7) Segmented Neutrophils % 91 % (35-66) Lymphocytes % 8 % (24-48) Monocytes % 1 % (0-10) Platelet Estimate Adequate (ADEQUATE) Medications Current Medications Morphine Sulfate 4 mg PRN Q15MIN PRN IV/SQ PAIN GREATER THAN 3/10 Last administered on 09/22/17 13:32; Start 09/22/17 at 12:45; Stop 09/23/17 at 12 :44 Fentanyl Citrate (Fentanyl 2ml Vial) 50 mcg PRN Q15MIN PRN IV PAIN GREATER THAN 3/10 Last administered on 09/23/17 00:27; Start 09/22/17 at 12:45; Stop 09/23/17 at 12:44 Ondansetron HCl (Zofran) 4 mg 1X ONCE IV Last administered on 09/22/17 12:57 ; Start 09/22/17 at 13:15; Stop 09/22/17 at 13:16; Status DC Sodium Chloride 1,000 ml @ 1,000 mls/hr 1X ONCE IV Last administered on 09/22 13:32; Start 09/22/17 at 13:15; Stop 09/22/17 at 14:14; Status DC Ondansetron HCl (Zofran) 4 mg PRN Q8HRS PRN IV NAUSEA/VOMITING Last administered on 09/23/17 00:26; Start 09/22/17 at 14:00; Stop 09/23/17 at 13 :59 Morphine Sulfate 4 mg PRN Q2HR PRN IV PAIN; Start 09/22/17 at 14:00; Stop at 13:59 Sodium Chloride 1,000 ml @ 125 mls/hr Q8H IV Last administered on 09/22/17 21:58; Start 09/22/17 at 13:58; Stop 09/23/17 at 13:57 Cefazolin Sodium/ Dextrose 50 ml @ 100 mls/hr 1X ONCE IV Last administered on 09/22/17 18:22; Start 09/22/17 at 16:00; Stop 09/22/17 at 16:29; Status DC Cefazolin Sodium/ Dextrose 50 ml @ 100 mls/hr Q6H IV Last administered on 08:00; Start 09/23/17 at 02:00; Stop 09/23/17 at 14:29 Potassium Chloride (Klor-Con) 20 meq [id number] PO Last administered on 08:51; Start 09/23/17 at 08:00 Potassium Chloride (Klor-Con) 40 meq 1X ONCE PO ; Start 09/22/17 at 18:00; Stop 09/22/17 at 18:01; Status DC Docusate Sodium (Colace) 100 mg DAILY PO Last administered on 09/23/17 08:52 ; Start 09/23/17 at 09:00 Polyethylene Glycol (miraLAX PACKET) 17 gm 1X ONCE PO ; Start 09/22/17 at 18: 00; Stop 09/22/17 at 18:01; Status DC Polyethylene Glycol (miraLAX PACKET) 17 gm DAILY PO Last administered on 08:52; Start 09/23/17 at 09:00 Magnesium Hydroxide (Milk Of Magnesia) 2,400 mg PRN DAILY PRN PO CONSTIPATION; Start 09/22/17 at 17:30 Oxycodone/ Acetaminophen (Percocet 7.5/ 325) 1 tab PRN Q4HRS PRN PO PAIN Last administered on 09/23/17 08:52; Start 09/22/17 at 17:45 Ringer's Solution 1,000 ml @ 75 mls/hr [id number] IV Last administered on 19:40; Start 09/22/17 at 17:45 Lidocaine HCl 30 ml STK-MED ONCE .ROUTE Last administered on 12/23/17at 18:32; Start 09/22/17 at 17:59; Stop 09/22/17 at 18:00; Status DC Bupivacaine HCl (Sensorcaine Mpf 0.5%) 30 ml STK-MED ONCE .ROUTE Last administered on 09/22/17t 18:32; Start 09/22/17 at 17:59; Stop 09/22/17 at 18 :00; Status DC Propofol 20 ml @ As Directed STK-MED ONCE IV ; Start 09/22/17 at 18:05; Stop 09/22/17 at 18:06; Status DC Lidocaine HCl (Lidocaine Pf 2% Vial) 5 ml STK-MED ONCE .ROUTE ; Start 09/22/17 at 18:05; Stop 09/22/17 at 18:06; Status DC Sevoflurane (Ultane) 15 ml STK-MED ONCE IH ; Start 09/22/17 at 18:05; Stop at 18:06; Status DC Fentanyl Citrate (Fentanyl 2ml Vial) 100 mcg STK-MED ONCE .ROUTE ; Start at 18:06; Stop 09/22/17 at 18:07; Status DC Dexamethasone Sodium Phosphate (Decadron) 20 mg STK-MED ONCE .ROUTE ; Start at 18:26; Stop 09/22/17 at 18:27; Status DC Ondansetron HCl (Zofran) 4 mg STK-MED ONCE .ROUTE ; Start 09/22/17 at 18:26; Stop 09/22/17 at 18:27; Status DC Morphine Sulfate 10 mg STK-MED ONCE .ROUTE ; Start 09/22/17 at 18:31; Stop at 18:32; Status DC Ephedrine Sulfate (ePHEDrine PF IN SALINE SYRINGE) 50 mg STK-MED ONCE IV ; Start 09/22/17 at 18:49; Stop 09/22/17 at 18:50; Status DC Zolpidem Tartrate (Ambien) 5 mg PRN QHS PRN PO INSOMNIA; Start 09/22/17 at 21: 15 Vitals/I & O Vital Sign - Last 24 Hours 09/22/17 09/22/17 09/22/17 09/22/17 12:36 12:36 12:54 12:58 Temp 98.6 98.6 Pulse 89 93 88 Resp 18 B/P (MAP) 131/77 (95) 133/71 (91) Pulse Ox 92 98 O2 Delivery Room Air Room Air 09/22/17 09/22/17 09/22/17 09/22/17 13:09 13:24 13:32 13:39 Pulse 72 73 63 Resp 16 16 14 B/P (MAP) 133/80 (97) 127/69 (88) 128/78 (95) Pulse Ox 100 100 97 O2 Delivery Room Air Room Air Room Air Room Air 09/22/17 09/22/17 09/22/17 09/22/17 13:49 13:54 14:09 14:24 Pulse 77 76 91 Resp 14 16 17 B/P (MAP) 130/77 (94) 129/81 (97) 143/83 (103) Pulse Ox 92 100 100 O2 Delivery Room Air Room Air Room Air Room Air 09/22/17 09/22/17 09/22/17 09/22/17 14:39 14:54 15:09 15:24 Pulse 80 93 88 94 Resp 17 17 17 20 B/P (MAP) 132/70 (90) 128/66 (86) 134/70 (91) 134/5 (48) Pulse Ox 95 98 95 98 O2 Delivery Room Air Room Air Room Air Room Air 09/22/17 09/22/17 09/22/17 09/22/17 15:39 15:54 17:25 19:01 Temp 99.2 98.3 99.2 98.3 Pulse 106 91 86 128 Resp 14 14 18 20 B/P (MAP) 118/58 (78) 113/59 (77) 141/79 152/75 Pulse Ox 98 97 98 98 O2 Delivery Room Air Room Air Simple Mask O2 Flow Rate 10 09/22/17 09/22/17 09/22/17 09/22/17 19:01 19:16 19:31 19:46 Temp 97.7 97.7 Pulse 99 78 85 Resp 20 20 20 B/P (MAP) 159/79 125/65 125/76 Pulse Ox 100 99 98 O2 Delivery Mask Simple Mask Room Air Room Air O2 Flow Rate 10 10 09/22/17 09/22/17 09/22/17 09/22/17 20:00 20:15 21:00 21:51 Temp 97.9 97.9 Pulse 96 97 93 Resp 18 18 18 B/P (MAP) 146/86 (106) 134/71 (92) 132/69 (90) Pulse Ox 97 94 93 O2 Delivery Room Air Room Air Room Air Room Air 09/22/17 09/22/17 09/23/17 09/23/17 22:00 23:00 00:27 00:57 Temp 98.0 98.0 Pulse 95 Resp 18 20 20 B/P (MAP) 150/86 (107) 134/77 (96) Pulse Ox 97 97 97 O2 Delivery Room Air Room Air Room Air 09/23/17 09/23/17 09/23/17 09/23/17 01:48 02:48 03:00 07:00 Temp 98.6 97.9 98.6 97.9 Pulse 98 83 Resp 20 20 18 18 B/P (MAP) 117/62 (80) 128/60 (82) Pulse Ox 97 97 97 93 O2 Delivery Room Air Room Air Room Air 09/23/17 09/23/17 09/23/17 08:52 11:04 11:40 Temp 97.9 97.9 Pulse 86 Resp 18 B/P (MAP) 114/65 (81) Pulse Ox 97 96 O2 Delivery Room Air Room Air Room Air Intake and Output 09/22/17 09/22/17 09/23/17 14:59 22:59 06:59 Intake Total 1000 ml 650 ml Output Total 460 ml 1550 ml Balance 540 ml -900 ml HUNG GREWAL MD Sep 23, 2017 12:32
[2017-09-23 15:52] VITALS: BP 105/64
[2017-09-23 19:00] VITALS: BP 112/67
[2017-09-23 23:00] VITALS: BP 126/60
[2017-09-24 03:00] VITALS: BP 105/60
[2017-09-24 07:00] VITALS: BP 123/72
[2017-09-24] MEDS: POLYETHYLENE GLYCOL 3350 17 GM PACKET. PO SCH (08:28)
[2017-09-24] MEDS: DOCUSATE SODIUM 100 MG CAPSULE. PO SCH (08:28)
[2017-09-24] MEDS: POTASSIUM CHLORIDE 20 MEQ TABLET.ER. PO SCH (08:28)
[2017-09-24] MEDS: oxyCODONE/APAP 7.5/325 1 TAB TABLET PO PRN ×2 (08:29→14:19)
[2017-09-24] MEDS: IV RINGERS,LACTATED 1000ML 1,000 ML IV SCH (09:45)
--- NOTE | 2017-09-24 10:08 | PDOC ---
ORTHO PROGRESS NOTES Subjective Nausea better, pain tolerable. Able to use crutches Vitals Vital Signs Date Time Temp Pulse Resp B/P (MAP) Pulse Ox O2 Delivery O2 Flow Rate FiO2 09/24/17 08:29 Room Air 09/24/17 07:00 98.3 73 18 123/72 (89) 96 98.3 Labs Laboratory Tests Test 09/22/17 12:45 09/23/17 04:45 White Blood Count 7.7 x10^3/uL (4.0-11.0) 9.5 x10^3/uL (4.0-11.0) Red Blood Count 4.61 x10^6/uL (4.30-5.70) 4.23 x10^6/uL (4.30-5.70) Hemoglobin 14.8 g/dL (13.0-17.5) 13.6 g/dL (13.0-17.5) Hematocrit 42.6 % (39.0-53.0) 38.6 % (39.0-53.0) Mean Corpuscular Volume 93 fL (79-100) 91 fL (79-100) Mean Corpuscular Hemoglobin 32 pg (25-35) 32 pg (25-35) Mean Corpuscular Hemoglobin Concent 35 g/dL (31-37) 35 g/dL (31-37) Red Cell Distribution Width 12.8 % (11.5-14.5) 12.6 % (11.5-14.5) Platelet Count 158 x10^3/uL (140-400) 144 x10^3/uL (140-400) Neutrophils (%) (Auto) 58 % (31-73) 87 % (31-73) Lymphocytes (%) (Auto) 30 % (24-48) 8 % (24-48) Monocytes (%) (Auto) 9 % (0-9) 5 % (0-9) Eosinophils (%) (Auto) 3 % (0-3) 0 % (0-3) Basophils (%) (Auto) 1 % (0-3) 0 % (0-3) Neutrophils # (Auto) 4.4 x10^3uL (1.8-7.7) 8.3 x10^3uL (1.8-7.7) Lymphocytes # (Auto) 2.3 x10^3/uL (1.0-4.8) 0.8 x10^3/uL (1.0-4.8) Monocytes # (Auto) 0.7 x10^3/uL (0.0-1.1) 0.4 x10^3/uL (0.0-1.1) Eosinophils # (Auto) 0.2 x10^3/uL (0.0-0.7) 0.0 x10^3/uL (0.0-0.7) Basophils # (Auto) 0.1 x10^3/uL (0.0-0.2) 0.0 x10^3/uL (0.0-0.2) Sodium Level 144 mmol/L (136-145) 140 mmol/L (136-145) Potassium Level 3.1 mmol/L (3.5-5.1) 4.1 mmol/L (3.5-5.1) Chloride Level 105 mmol/L (98-107) 104 mmol/L (98-107) Carbon Dioxide Level 29 mmol/L (21-32) 25 mmol/L (21-32) Anion Gap 10 (6-14) 11 (6-14) Blood Urea Nitrogen 9 mg/dL (8-26) 8 mg/dL (8-26) Creatinine 0.9 mg/dL (0.7-1.3) 0.9 mg/dL (0.7-1.3) Estimated GFR (Cockcroft-Gault) 98.4 98.4 BUN/Creatinine Ratio 10 (6-20) Glucose Level 106 mg/dL (70-99) 132 mg/dL (70-99) Calcium Level 8.5 mg/dL (8.5-10.1) 8.2 mg/dL (8.5-10.1) Total Bilirubin 0.5 mg/dL (0.2-1.0) Aspartate Amino Transf (AST/SGOT) 20 U/L (15-37) Alanine Aminotransferase (ALT/SGPT) 24 U/L (16-63) Alkaline Phosphatase 67 U/L (46-116) Creatine Kinase 220 U/L (39-308) Total Protein 7.1 g/dL (6.4-8.2) Albumin 4.1 g/dL (3.4-5.0) Albumin/Globulin Ratio 1.4 (1.0-1.7) Segmented Neutrophils % 91 % (35-66) Lymphocytes % 8 % (24-48) Monocytes % 1 % (0-10) Platelet Estimate Adequate (ADEQUATE) Notes A and A in bed RLE: toes pink and warm splint intact Assessment and Plan ok to transfer from my standpoint NWB x 6 wks LOPEZ KNAPP II, MD Sep 24, 2017 10:08
[2017-09-24] MEDS: CYCLOBENZAPRINE 10 MG TABLET. PO PRN ×2 (10:47→17:19)
[2017-09-24 11:40] VITALS: BP 115/63
[2017-09-24] MEDS ORDERED: DOCU-109 PO (14:01)
[2017-09-24] MEDS ORDERED: CYCL10TA2 PO (14:01)
[2017-09-24] MEDS ORDERED: ACET325T9 PO (14:01)
[2017-09-24] MEDS ORDERED: IBUP-1060 PO (14:01)
[2017-09-24] MEDS ORDERED: TRAM-48 PO (14:01)
[2017-09-24] MEDS ORDERED: POLY17PO3 PO (14:01)
--- NOTE | 2017-09-24 14:06 | PDOC ---
PROGRESS NOTES Chief Complaint Chief Complaint right foot crush injury hypokalemia nausea without vomiting foot pain History of Present Illness History of Present Illness incarcerated, plan DC to [facility] soon pain control, PT and OT as able, pain when not supine, Vitals Vitals Vital Signs Date Time Temp Pulse Resp B/P (MAP) Pulse Ox O2 Delivery O2 Flow Rate FiO2 09/24/17 11:40 98.2 85 18 115/63 (80) 95 Room Air 98.2 Physical Exam General: Alert, Oriented X3, Cooperative, moderate distress Heart: Regular rate, Other (unable to palpate dorsalis pedis through edema over the dorsum of right foot, 2+ left foot) Lungs: Clear Abdomen: Normal bowel sounds, Soft Extremities: No clubbing, No cyanosis, No edema Skin: No significant lesion Review of Systems Review of Systems no nv.d. Assessment and Plan Assessmemt and Plan Problems Medical Problems: (1) Crush injury of foot Status: Acute (2) Multiple closed fractures of metatarsal bone Status: Acute (3) Toe joint dislocation Status: Acute Problems: Comment Review of Relevant I have reviewed the following items briseyda (where applicable) has been applied. Labs Laboratory Tests Test 09/23/17 04:45 White Blood Count 9.5 x10^3/uL (4.0-11.0) Red Blood Count 4.23 x10^6/uL (4.30-5.70) Hemoglobin 13.6 g/dL (13.0-17.5) Hematocrit 38.6 % (39.0-53.0) Mean Corpuscular Volume 91 fL (79-100) Mean Corpuscular Hemoglobin 32 pg (25-35) Mean Corpuscular Hemoglobin Concent 35 g/dL (31-37) Red Cell Distribution Width 12.6 % (11.5-14.5) Platelet Count 144 x10^3/uL (140-400) Neutrophils (%) (Auto) 87 % (31-73) Lymphocytes (%) (Auto) 8 % (24-48) Monocytes (%) (Auto) 5 % (0-9) Eosinophils (%) (Auto) 0 % (0-3) Basophils (%) (Auto) 0 % (0-3) Neutrophils # (Auto) 8.3 x10^3uL (1.8-7.7) Lymphocytes # (Auto) 0.8 x10^3/uL (1.0-4.8) Monocytes # (Auto) 0.4 x10^3/uL (0.0-1.1) Eosinophils # (Auto) 0.0 x10^3/uL (0.0-0.7) Basophils # (Auto) 0.0 x10^3/uL (0.0-0.2) Segmented Neutrophils % 91 % (35-66) Lymphocytes % 8 % (24-48) Monocytes % 1 % (0-10) Platelet Estimate Adequate (ADEQUATE) Sodium Level 140 mmol/L (136-145) Potassium Level 4.1 mmol/L (3.5-5.1) Chloride Level 104 mmol/L (98-107) Carbon Dioxide Level 25 mmol/L (21-32) Anion Gap 11 (6-14) Blood Urea Nitrogen 8 mg/dL (8-26) Creatinine 0.9 mg/dL (0.7-1.3) Estimated GFR (Cockcroft-Gault) 98.4 Glucose Level 132 mg/dL (70-99) Calcium Level 8.2 mg/dL (8.5-10.1) Medications Current Medications Morphine Sulfate 4 mg PRN Q15MIN PRN IV/SQ PAIN GREATER THAN 3/10 Last administered on 09/22/17 13:32; Start 09/22/17 at 12:45; Stop 09/23/17 at 12 :44; Status DC Fentanyl Citrate (Fentanyl 2ml Vial) 50 mcg PRN Q15MIN PRN IV PAIN GREATER THAN 3/10 Last administered on 09/23/17 00:27; Start 09/22/17 at 12:45; Stop 09/23/17 at 12:44; Status DC Ondansetron HCl (Zofran) 4 mg 1X ONCE IV Last administered on 09/22/17 12:57 ; Start 09/22/17 at 13:15; Stop 09/22/17 at 13:16; Status DC Sodium Chloride 1,000 ml @ 1,000 mls/hr 1X ONCE IV Last administered on 09/22 13:32; Start 09/22/17 at 13:15; Stop 09/22/17 at 14:14; Status DC Ondansetron HCl (Zofran) 4 mg PRN Q8HRS PRN IV NAUSEA/VOMITING Last administered on 09/23/17 00:26; Start 09/22/17 at 14:00; Stop 09/23/17 at 13 :59; Status DC Morphine Sulfate 4 mg PRN Q2HR PRN IV PAIN; Start 09/22/17 at 14:00; Stop at 13:59; Status DC Sodium Chloride 1,000 ml @ 125 mls/hr Q8H IV Last administered on 09/22/17 21:58; Start 09/22/17 at 13:58; Stop 09/23/17 at 13:57; Status DC Cefazolin Sodium/ Dextrose 50 ml @ 100 mls/hr 1X ONCE IV Last administered on 09/22/17 18:22; Start 09/22/17 at 16:00; Stop 09/22/17 at 16:29; Status DC Cefazolin Sodium/ Dextrose 50 ml @ 100 mls/hr Q6H IV Last administered on 14:00; Start 09/23/17 at 02:00; Stop 09/23/17 at 14:29; Status DC Potassium Chloride (Klor-Con) 20 meq [id number] PO Last administered on 08:28; Start 09/23/17 at 08:00 Potassium Chloride (Klor-Con) 40 meq 1X ONCE PO ; Start 09/22/17 at 18:00; Stop 09/22/17 at 18:01; Status DC Docusate Sodium (Colace) 100 mg DAILY PO Last administered on 09/24/17 08:28 ; Start 09/23/17 at 09:00 Polyethylene Glycol (miraLAX PACKET) 17 gm 1X ONCE PO ; Start 09/22/17 at 18: 00; Stop 09/22/17 at 18:01; Status DC Polyethylene Glycol (miraLAX PACKET) 17 gm DAILY PO Last administered on 08:28; Start 09/23/17 at 09:00 Magnesium Hydroxide (Milk Of Magnesia) 2,400 mg PRN DAILY PRN PO CONSTIPATION; Start 09/22/17 at 17:30 Oxycodone/ Acetaminophen (Percocet 7.5/ 325) 1 tab PRN Q4HRS PRN PO PAIN Last administered on 09/24/17 08:29; Start 09/22/17 at 17:45 Ringer's Solution 1,000 ml @ 75 mls/hr [id number] IV Last administered on 19:40; Start 09/22/17 at 17:45; Stop 09/24/17 at 11:22; Status DC Lidocaine HCl 30 ml STK-MED ONCE .ROUTE Last administered on 09/22/17 18:32; Start 09/22/17 at 17:59; Stop 09/22/17 at 18:00; Status DC Bupivacaine HCl (Sensorcaine Mpf 0.5%) 30 ml STK-MED ONCE .ROUTE Last administered on 09/22/17 18:32; Start 09/22/17 at 17:59; Stop 09/22/17 at 18 :00; Status DC Propofol 20 ml @ As Directed STK-MED ONCE IV ; Start 09/22/17 at 18:05; Stop 09/22/17 at 18:06; Status DC Lidocaine HCl (Lidocaine Pf 2% Vial) 5 ml STK-MED ONCE .ROUTE ; Start 09/22/17 at 18:05; Stop 09/22/17 at 18:06; Status DC Sevoflurane (Ultane) 15 ml STK-MED ONCE IH ; Start 09/22/17 at 18:05; Stop at 18:06; Status DC Fentanyl Citrate (Fentanyl 2ml Vial) 100 mcg STK-MED ONCE .ROUTE ; Start at 18:06; Stop 09/22/17 at 18:07; Status DC Dexamethasone Sodium Phosphate (Decadron) 20 mg STK-MED ONCE .ROUTE ; Start at 18:26; Stop 09/22/17 at 18:27; Status DC Ondansetron HCl (Zofran) 4 mg STK-MED ONCE .ROUTE ; Start 09/22/17 at 18:26; Stop 09/22/17 at 18:27; Status DC Morphine Sulfate 10 mg STK-MED ONCE .ROUTE ; Start 09/22/17 at 18:31; Stop at 18:32; Status DC Ephedrine Sulfate (ePHEDrine PF IN SALINE SYRINGE) 50 mg STK-MED ONCE IV ; Start 09/22/17 at 18:49; Stop 09/22/17 at 18:50; Status DC Zolpidem Tartrate (Ambien) 5 mg PRN QHS PRN PO INSOMNIA; Start 09/22/17 at 21: 15 Cyclobenzaprine HCl (Flexeril) 10 mg PRN Q6HRS PRN PO MUSCLE SPASMS Last administered on 09/24/17t 10:47; Start 09/24/17 at 10:45 Active Scripts Active Ibuprofen 800 Mg Tablet 800 Mg PO PRN Q6HRS PRN Tylenol (Acetaminophen) 325 Mg Tablet 2 Tab PO QID Ultram (Tramadol Hcl) 50 Mg Tablet 1 Tab PO Q6HRS Polyethylene Glycol 3350 17 Gm Powd.pack 17 Gm PO DAILY Cyclobenzaprine Hcl 10 Mg Tablet 10 Mg PO PRN Q6HRS PRN Colace (Docusate Sodium) 100 Mg Capsule 100 Mg PO DAILY Vitals/I & O Vital Sign - Last 24 Hours 09/23/17 09/23/17 09/23/17 09/23/17 15:52 17:50 19:00 20:06 Temp 98.0 98.8 98.0 98.8 Pulse 92 85 Resp 18 18 B/P (MAP) 105/64 (78) 112/67 (82) Pulse Ox 95 93 O2 Delivery Room Air Room Air Room Air Room Air 09/23/17 09/23/17 09/23/17 09/24/17 20:11 21:11 23:00 03:00 Temp 98.4 98.1 98.4 98.1 Pulse 81 77 Resp 20 20 18 18 B/P (MAP) 126/60 (82) 105/60 (75) Pulse Ox 95 95 95 96 O2 Delivery Room Air Room Air Room Air 09/24/17 09/24/17 09/24/17 09/24/17 07:00 08:00 08:29 10:48 Temp 98.3 98.3 Pulse 73 Resp 18 B/P (MAP) 123/72 (89) Pulse Ox 96 O2 Delivery Room Air Room Air Room Air Room Air 09/24/17 11:40 Temp 98.2 98.2 Pulse 85 Resp 18 B/P (MAP) 115/63 (80) Pulse Ox 95 O2 Delivery Room Air Intake and Output 09/23/17 09/23/17 09/24/17 15:00 23:00 07:00 Intake Total 400 ml 1300 ml Output Total 1000 ml 200 ml Balance 400 ml 300 ml -200 ml HUNG GREWAL MD Sep 24, 2017 14:06
[2017-09-24] MEDS ORDERED: ACETAMINOPHEN 325 MG TABLET. PO PRN (14:45)
[2017-09-24] MEDS ORDERED: traMADol 50 MG TABLET PO PRN (14:45)
[2017-09-24 15:40] VITALS: BP 110/63
[2017-09-24] MEDS: IBUPROFEN 800 MG TABLET. PO PRN (17:19)
[2017-09-24 19:00] VITALS: BP 101/61
[2017-09-24 23:00] VITALS: BP 104/59
[2017-09-25 03:00] VITALS: BP 104/67
[2017-09-25 07:25] VITALS: BP 111/62
[2017-09-25] MEDS: POLYETHYLENE GLYCOL 3350 17 GM PACKET. PO SCH (09:54)
[2017-09-25] MEDS: IBUPROFEN 800 MG TABLET. PO PRN ×2 (09:55→16:13)
[2017-09-25] MEDS: oxyCODONE/APAP 7.5/325 1 TAB TABLET PO PRN ×2 (09:55→16:13)
[2017-09-25] MEDS: CYCLOBENZAPRINE 10 MG TABLET. PO PRN ×2 (09:55→16:13)
[2017-09-25] MEDS: POTASSIUM CHLORIDE 20 MEQ TABLET.ER. PO SCH (09:56)
[2017-09-25] MEDS: DOCUSATE SODIUM 100 MG CAPSULE. PO SCH (09:56)
[2017-09-25 11:10] VITALS: BP 108/54
[2017-09-25 15:00] VITALS: BP 100/51
== END 2017-09-25 17:30 | disposition home or self-care (01) | DRG 505 ==
LOC: EEVIPCON 12:36 → ER 12:36 → 4 NORTH 13:34
PROVIDERS: ADMIT Internal Medicine; ATTEND Internal Medicine
PROC: 0QSQ34Z Reposition Right Toe Phalanx with Internal Fixation Device, Percutaneous Approach (ICD-10-PCS; principal; 2017-09-22 17:00)
DX: S92.311A Displaced fracture of first metatarsal bone, right foot, initial encounter for closed fracture (principal); E87.6 Hypokalemia; S92.511A Displaced fracture of proximal phalanx of right lesser toe(s), initial encounter for closed fracture; S92.321A Displaced fracture of second metatarsal bone, right foot, initial encounter for closed fracture; S92.331A Displaced fracture of third metatarsal bone, right foot, initial encounter for closed fracture; S92.341A Displaced fracture of fourth metatarsal bone, right foot, initial encounter for closed fracture; K59.00 Constipation, unspecified; S93.111A Dislocation of interphalangeal joint of right great toe, initial encounter; S97.81XA Crushing injury of right foot, initial encounter; W23.0XXA Caught, crushed, jammed, or pinched between moving objects, initial encounter
CPT/HCPCS: 36415; 73630; 76000; 80048; 80053; 82550; 85007; 85025; 96361; 96374; 96375; J0690; J1100; J2270; J2405; J2704; J3010; J3490; J7030; J7120; 97116; 99285-25; J2001